=== PATIENT | female | born 1990 | race Caucasian/White ===

== ENCOUNTER 2018-02-20 23:04 | Emergency (ER) | payer OTHER ==
[2018-02-21] MEDS: ONDANSETRON (ODT) 4 MG TAB ODT (00:16)
[2018-02-21] MEDS: ALPRAZOLAM 1 MG TAB PO (00:16)
== END 2018-02-21 00:19 | disposition home or self-care (01) ==
LOC: FTE 02-21 00:19
DX: F41.9 Anxiety disorder, unspecified (principal); F45.8 Other somatoform disorders
CPT/HCPCS: 99284; Z7502